=== PATIENT | female | born 1990 | race Caucasian/White ===

== ENCOUNTER 2016-08-18 18:54 | Emergency (ER) | payer MEDICAID ==
[2016-08-18 19:28] VITALS: BP 131/77; PULSE 93; RESP 18; TEMP 98.1; O2SAT 96
--- NOTE | 2016-08-18 19:49 | UCPHY ---
H & P Patient Type: New Chief Complaint Nursing Narrative: stuffy/runny nose, cough, chest congestion x 2 days Time Seen by Provider: 08/18/16 19:42 HPI/ROS: Chief complaint: Cough, body aches, congestion HPI: 26-year-old woman presenting with 3-4 days of general malaise, cough, body aches, congestion and runny nose. Cough is productive of a yellow sputum. No subjective fevers or chills. No shortness of breath. No nausea or vomiting. Mild headache. Mild sore throat. No ear pain. No chest pain or shortness of breath. No abdominal pain. Some nausea. No vomiting. No diarrhea. She has been taking ibuprofen and acetaminophen with some relief. No other medications. ROS: 10 point Review of Systems is negative except as noted in the HPI. Physical exam: Gen: Awake, Alert, No Distress HEENT: Ears: Bilateral cerumen impaction, once cleared the TMs appeared normal Nose: no rhinorrhea Eyes: PERRLA, EOMI Mouth: Moist mucosa no pharyngeal exudate Neck: Supple, no JVD Chest: nontender, lungs clear to auscultation Heart: S1, S2 normal, no murmur Abd: Soft, non-tender, no guarding Back: no CVA tenderness, no midline tenderness Ext: no edema, non-tender Skin: no rash Neuro: CN II-XII intact, Sensation grossly intact, Strength 5/5 in bilateral upper and lower extremities - Personal History LMP (Females 10-55): 22-28 Days Ago - Medical/Surgical History Other PMH: denies - Family History Significant Family History: No pertinent family hx - Social History Smoking Status: Never smoked Constitutional: Initial Vital Signs Temperature (C) 36.7 C 08/18/16 19:25 Heart Rate 93 08/18/16 19:25 Respiratory Rate 18 08/18/16 19:25 Blood Pressure 131/77 H 08/18/16 19:25 O2 Sat (%) 96 08/18/16 19:25 O2 Delivery Mode Room Air Allergies/Adverse Reactions: No Known Allergies Allergy (Unverified 08/18/16 19:25) Home Medications: Medication Instructions Recorded NK [No Known Home Meds] 08/18/16 Medical Decision Making Procedures: Procedure: Cerumen removal. After a physical exam was performed cerumen needed to be removed from the patient's ear canal. The indication of the procedure was cerumen impaction and inability to complete the ear exam. The procedure was performed with ear irrigation. The patient tolerated the procedure well. The procedure was performed by myself. Departure - Departure Disposition: Home, Routine, Self-Care Clinical Impression: Viral upper respiratory infection, Cerumen impaction Condition: Good Instructions: Viral Syndrome (ED), Cerumen Impaction (ED) Additional Instructions: Do not use Q-tips in her ears. Only use ear drops for to clear ear wax. May take ibuprofen and acetaminophen every 3-4 hours as needed for aches and pains. Follow with her primary care physician in 3-4 days if symptoms are not improving. Referrals: Mickey Hammond DO [Primary Care Provider] - As per Instructions - PQRS PQRS Measurement: NA
== END 2016-08-18 20:13 | disposition home or self-care (01) ==
LOC: CED 18:54
PROC: 3E1B78Z Irrigation of Ear using Irrigating Substance, Via Natural or Artificial Opening (ICD-10-PCS; principal; 2016-08-18)
DX: J06.9 Acute upper respiratory infection, unspecified (principal); H61.23 Impacted cerumen, bilateral
CPT/HCPCS: G0463-PO

== ENCOUNTER 2016-12-29 18:48 | Emergency (ER) | payer MEDICAID ==
[2016-12-29 19:08] VITALS: BP 128/84; PULSE 111; RESP 16; TEMP 98.8; O2SAT 97
--- NOTE | 2016-12-29 19:18 | EDPHY ---
H & P Time Seen by Provider: 12/29/16 19:04 HPI/ROS: HPI Tongue irritation. 26-year-old female by private vehicle. She complains of irritation to her tongue which has been ongoing for a couple of weeks. She reports that she wakes and feels which she describes as knots running along the side of her tongue. She reports that these are somewhat tender and irritated feeling. She reports that they than 10 to improved during the day. She saw her dentist and he did not have anything to offer her as far as an explanation for this. She is not on Emmanuel inhibitors. No history of angioedema. Denies any oral ingestion of caustic agents very spicy foods. No voice changes. No stridor. No difficulty breathing. No problem swallowing. No bleeding. ROS: Constitutional: No fever, no chills. No weakness. Eyes: No discharge. No changes in vision. ENT: No sore throat. No nasal congestion or rhinorrhea. As above. Respiratory: No cough. No shortness of breath. Musculoskeletal: No back pain. No neck pain. No myalgias or arthralgias. Skin: No rashes. Neurological: No headache. No focal weakness or altered sensation. Past medical history: She denies any significant past medical history. Social history: Here by herself. She works at [email or web address]. Nonsmoker. No alcohol. Physical Exam: General Appearance: Alert, no distress. This patient is responding to questions appropriately and in full sentences. This patient appears well- hydrated and well-nourished. Eyes: Pupils equal and round no pallor or injection. No lid edema, erythema or injection. ENT, Mouth: Mucous membranes are moist. The pharyngeal tissues are unremarkable. No edema or swelling. No asymmetry suggestive of abscess. No erythema or exudates. There is no elevation of the tongue. I do not appreciate any swelling or angioedema. No lesions on close inspection of the tongue. No lacerations or abrasions or other evidence of trauma. No stridor on auscultation of her neck. No voice changes. The buccal mucosa a and gingival tissues are normal. She does not have any cervical, submandibular submental lymphadenopathy. Respiratory: There are no retractions, lungs are clear to auscultation with good air movement bilaterally. Cardiovascular: Regular rate and rhythm. No murmur. Neurological: Motor sensory function is grossly intact. Cranial nerves are normal. Gait is normal. Skin: Warm and dry, no rashes. Musculoskeletal: Neck is supple and nontender. No pain on flexion of the neck. Extremities are symmetrical. All joints range without pain or impingement. Psychiatric: No agitation. No depression. Database: EKG: Imaging: Procedures: Emergency department course: After my evaluation of this patient as stated above, explained to her that I did not find any abnormality involving her tongue. She does not currently have a primary care physician. I will refer her to 1. I will also provide her with a referral to ENT. I do not feel that there is any emergent condition regarding her tongue airway currently. She does feel comfortable going home. Follow-up was discussed with her. Return to emergency department precautions reviewed. All of her questions were answered. She was discharged in good condition. Differential Diagnosis: The differential diagnosis on this patient includes but is not limited to irritation of the tongue. Angioedema, Ludwigs angina, laceration, infection, thrush, herpes unlikely. This represents a partial list of diagnoses considered. These considerations are based on history, physical exam, past history, reassessment and diagnostic testing. Smoking Status: Never smoked Constitutional: Initial Vital Signs Temperature (C) 37.1 C 12/29/16 19:06 Heart Rate 111 H 12/29/16 19:06 Respiratory Rate 16 12/29/16 19:06 Blood Pressure 128/84 H 12/29/16 19:06 O2 Sat (%) 97 12/29/16 19:06 O2 Delivery Mode Room Air Allergies/Adverse Reactions: No Known Allergies Allergy (Unverified 12/29/16 19:06) Home Medications: Medication Instructions Recorded NK [No Known Home Meds] 08/18/16 Departure - Departure Disposition: Home, Routine, Self-Care Clinical Impression: Tongue irritation Condition: Good Instructions: Mouth Care (ED) Additional Instructions: Read and follow provided instructions. Follow-up with the primary care physician that I have provided you with referral to. I have provided you with 2 options. I have also provided you with a referral to an ENT specialist for further evaluation of your tongue complaint. Return to the emergency department for worsening symptoms, difficulty swallowing , voice changes, difficulty breathing, any swelling of the tongue or other serious concerns. Referrals: [facility],. [Clinic] - As per Instructions Geraldine Arevalo MD [Medical Doctor] - As per Instructions Jc Green MD [Medical Doctor] - As per Instructions
== END 2016-12-29 19:25 | disposition home or self-care (01) ==
LOC: CED 18:48
DX: K14.8 Other diseases of tongue (principal)